=== PATIENT | male | born 1935 | race Caucasian/White ===

== ENCOUNTER 2017-11-23 19:37 | Inpatient (IN) | payer MEDICARE ==
[2017-11-23 20:19] LABS: #Eosinphils 0.1 thou/uL (0.0-0.7); #Lymphocytes 2.2 thou/uL (1.20-3.40); #Monocytes 0.5 thou/uL (0.11-0.59); #Neutrophils 3.6 thou/uL (1.40-6.50); %Basophils 0.8 % (0.0-1.0); %Eosinophils 1.6 % (0.0-10.0); %Monocytes 7.8 % (0.0-10.0); %Neutrophils 55.9 % (42.0-75.0); Hemoglobin 14.5 g/dL (14.0-18.0); Mean Corpuscular HGB CONC 34.7 g/dL (32.0-36.0); Mean Corpuscular Hemoglobin 32.8 pg (27.0-31.0); Mean Corpuscular Volume 94.4 fL (78.0-98.0); Mean Platelet Volume 6.6 fL (7.4-10.4); Platelet Count 125 thou/uL (130-400); RBC Distribution Width 12.6 % (11.5-14.5); Red Blood Cell (RBC) Count 4.41 mill/uL (4.70-6.10); White Blood Cell (WBC) Count 6.5 thou/uL (4.8-10.8)
[2017-11-23 20:24] LABS: PTT 24.6 SEC (22.9-36.1); Prothrombin Time 12.8 SEC (12.0-14.7)
[2017-11-23 20:40] LABS: ALT (SGPT) 44 U/L (8-55); AST (SGOT) 44 U/L (5-34); Albumin 4.2 g/dL (3.4-4.8); Alkaline Phosphatase 40 U/L (40-150); Anion Gap 11 mmol/L (10-20); BUN (Urea Nitrogen) 18 mg/dL (8.4-25.7); Bilirubin, Total 0.3 mg/dL (0.2-1.2); CK (CPK) 118 U/L (30-200); Calc. Creatinine Clearance 0 mL/min (70-130); Calcium 9.5 mg/dL (7.8-10.44); Carbon Dioxide 27 mmol/L (23-31); Chloride 101 mmol/L (98-107); Estimated GFR-MDRD 74; Globulin 2.6 g/dL (2.4-3.5); Glucose 148 mg/dL (83-110); Potassium 4.1 mmol/L (3.5-5.1); Protein, Total 6.8 g/dL (5.8-8.1); Sodium 135 mmol/L (136-145)
[2017-11-23 20:45] LABS: CKMB 3.9 ng/mL (0-6.6); Troponin I Less than 0.010 ng/mL (< 0.028)
--- NOTE | 2017-11-23 21:02 | RAD ---
RADIOGRAPH CHEST 1 VIEW: Date: 11/23/16 Time: 8:18 p.m. HISTORY: 82-year-old male with brachycardia and syncope. COMPARISON: None. FINDINGS: Ectasia and tortuosity of the thoracic aorta. Magnification of the cardiac shadow. Upper lobe pulmona ry vasculature is mildly engorged. No ian pulmonary alveolar edema. No consolidation. Lateral costo phrenic angles are sharp. No pneumothorax. IMPRESSION: 1. Mild pulmonary vascular congestion. 2. Ectasia and tortuosity of the thoracic aorta. JN [] POS: [facility]
[2017-11-23] MEDS ORDERED: Bisacodyl 5 MG TAB PO PRN ×2 (22:43)
[2017-11-23] MEDS ORDERED: Loratadine 10 MG TAB PO PRN (22:43)
[2017-11-23] MEDS ORDERED: Senokot 8.6 MG TAB PO PRN ×2 (22:43)
[2017-11-23] MEDS ORDERED: Calcium Carbonate 500 MG ChewTAB PO PRN (22:43)
[2017-11-23] MEDS ORDERED: hydrALAZINE 20 MG/ML VIAL SLOW IVP PRN (22:43)
[2017-11-23] MEDS ORDERED: Nitroglycerin 0.4 MG TAB (25 Tab Bottle) SL PRN (22:43)
[2017-11-23] MEDS ORDERED: Benzonatate 100 MG CAP PO PRN (22:43)
[2017-11-23] MEDS ORDERED: cloNIDine 0.1 MG TAB PO PRN (22:43)
[2017-11-23] MEDS ORDERED: Diabetic Tussin 200 MG/10 ML UDCUP PO PRN (22:43)
[2017-11-23] MEDS ORDERED: traMADol HCl 50 MG TAB PO PRN (22:43)
[2017-11-23] MEDS ORDERED: Mag-Al 1200 mg/1200 mg/30 ML UDCUP PO PRN (22:43)
[2017-11-23] MEDS ORDERED: Acetaminophen 325 MG TAB PO PRN (22:43)
[2017-11-24] MEDS ORDERED: Dextrose 50% Abboject 50 ML SYRINGE SLOW IVP PRN (00:23)
[2017-11-24] MEDS ORDERED: Nitroglycerin 0.4 MG TAB (25 Tab Bottle) SL PRN (00:23)
[2017-11-24] MEDS ORDERED: Calcium Carbonate 500 MG ChewTAB PO PRN (00:23)
[2017-11-24] MEDS ORDERED: Dextrose 5% in Water 1,000 ML IV PRN (00:23)
[2017-11-24] MEDS ORDERED: HumaLOG 300 UNITS/3 ML VIAL SC PRN ×2 (00:23)
[2017-11-24] MEDS ORDERED: hydrALAZINE 20 MG/ML VIAL SLOW IVP PRN (00:23)
[2017-11-24] MEDS ORDERED: Acetaminophen 325 MG TAB PO PRN (00:23)
[2017-11-24] MEDS ORDERED: Bisacodyl 5 MG TAB PO PRN ×2 (00:23)
[2017-11-24] MEDS ORDERED: traMADol HCl 50 MG TAB PO PRN (00:23)
[2017-11-24] MEDS ORDERED: Mag-Al 1200 mg/1200 mg/30 ML UDCUP PO PRN (00:23)
[2017-11-24] MEDS ORDERED: Senokot 8.6 MG TAB PO PRN ×2 (00:23)
[2017-11-24] MEDS ORDERED: Diabetic Tussin 200 MG/10 ML UDCUP PO PRN (00:23)
[2017-11-24] MEDS ORDERED: Loratadine 10 MG TAB PO PRN (00:23)
[2017-11-24] MEDS ORDERED: Benzonatate 100 MG CAP PO PRN (00:23)
[2017-11-24] MEDS ORDERED: Ondansetron HCl/PF 4 MG/2 ML Vial IVP PRN ×2 (00:23)
[2017-11-24 00:37] VITALS: BMI 40.3
--- NOTE | 2017-11-24 02:33 | HP ---
PRIMARY CARE PHYSICIAN: Cristobal Perez M.D. PRIMARY PROFILING MACHINE SET UP OPERATOR TOOL: Dr. Mccarthy. CHIEF COMPLAINT: Dizziness and syncope. HISTORY OF PRESENT ILLNESS: Mr. Reese is a very pleasant 82-year-old male with known history of hyp ertension, diabetes, who presented to the ER with above-mentioned complaint. History is mainly obtai arnaldo by the patient himself. Electronical medical records have been reviewed. Case has been discusse d with admitting ER physician. Mr. Reese reports that about 2 weeks ago while he was walking his dog, he noticed some dizziness. H e checked his blood pressure and heart rate and both were very low. His diastolic blood pressure was in the 30s and so was his heart rate. This has happened after repeat check as well. Also, this mor brianna, he was feeling dizzy again and checked his blood pressure and heart rate with similar readings. Later while, he was sitting in the chair with his son-in-law looking at some slides he passed out. This was witnessed by his son-in-law who reported to the ER physician that this episode was about 10 seconds or so. Mr. Reese himself has no recollection of that. He has been feeling dizzy all day l . He denies any palpitations or chest pain or any recent illnesses. He denies any shortness of b reath, orthopnea, or PND. He reports that after his first episode about 2 weeks ago, he sought attention with his primary cardi ologist, Dr. Mccarthy. He is supposed to undergo a 24-hour Holter monitor this coming Tuesday and a stress test this coming Tuesday. Upon presentation to the ER, he was hemodynamically stable with a blood pressure 141/79 with a pulse of 78, oxygen saturation 94% on room air. His bradycardia has not repeated here. His EKG showed fir st-degree AV block with incomplete right bundle branch block. His lab work is rather unremarkable. Cardiac enzymes normal. He is now being admitted for evaluation and monitoring of symptomatic bradyc ardia. PAST MEDICAL HISTORY: 1. Hypertension. 2. Diabetes mellitus. PAST SURGICAL HISTORY: 1. Bladder tumor removal. 2. Left knee replacement. PSYCHIATRIC HISTORY: No anxiety or depression. SOCIAL HISTORY: He lives with his family. No history of drug, tobacco, or alcohol abuse. FAMILY HISTORY: No significant family history of premature coronary artery disease or stroke. ALLERGIES: No known medication allergies. CURRENT MEDICATIONS: Aspirin 81 mg daily. Please note the medications listed are as per the ER val rd, Lasix 40 mg daily, glyburide 5 mg daily, hydrochlorothiazide 25 mg daily, metformin 500 mg p.o. b .i.d., tamsulosin 0.4 mg daily, vitamin D3 of 1000 units daily, Flexeril 10 mg t.i.d., Jardiance 10 m g daily, losartan 50 mg daily, and Crestor 10 mg daily. REVIEW OF SYSTEMS: The following complete review of systems was negative, except for those mentioned in the history and physical: Constitutional: Weight loss or gain, ability to conduct usual activit ies. Skin: Rash, itching. Eyes: Double vision, pain. ENT/Mouth: Nose bleeding, neck stiffness, pain, tenderness. Cardiovascular: Palpitations, dyspnea on exertion, orthopnea. Respiratory: Shor tness of breath, wheezing, cough, hemoptysis, fever, or night sweats. Gastrointestinal: Poor appeti te, abdominal pain, heartburn, nausea, vomiting, constipation, or diarrhea. Genitourinary: Urgency, frequency, dysuria, nocturia. Musculoskeletal: Pain, swelling. Neurologic/Psychiatric: Anxiety, depression. Allergy/Immunologic: Skin rash, bleeding tendency. LABORATORY DATA: His CBC is unremarkable. Hemoglobin 14.5. He has mild thrombocytopenia with a ileana telet count of 125. PT, PTT, and INR were unremarkable. Serum chemistry shows sodium of 135, blood sugar 148. AST 44. Cardiac enzymes normal. A 12-lead EKG by my review shows first-degree AV block. No acute ST or T-wave changes. Chest x-ray by my review showed mild pulmonary vascular congestion, otherwise unremarkable. PHYSICAL EXAMINATION: VITAL SIGNS: Most recent vital signs, temperature 97.9, pulse of 64, respirations 16, saturating 96% on room air, blood pressure 140/80. GENERAL: No acute distress, awake, alert, oriented x3. CHEST: Clear to auscultation without any wheezing, rales, or rhonchi. CARDIOVASCULAR: Rhythm is regular without any murmur, rubs, or gallops. ABDOMEN: Soft, nontender, nondistended with positive bowel sounds. EXTREMITIES: Free of any cyanosis, clubbing, or edema. NEUROLOGIC: Nonfocal. SKIN: Shows patchy papular erythematous rash on both lower extremities, for which he is under care o f a integrated logistics programs director, Dr. Agosto. NEUROLOGIC: Nonfocal. PSYCHIATRIC: Normal affect. IMPRESSION AND PLAN: 1. Syncope secondary to bradycardia. 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 We will admit him to telemetry unit and consult Cardiology in the morning for a possible pacemaker placement. An echocardiogram will be obtained. The patient also has an outpati ent stress test scheduled by his own primary rare/endangered species specialist, Dr. Mccarthy. At this time, he is confli cted whether he would like to get his whole workup and treatment done here versus being transferred [facility] for his own rare/endangered species specialist. This will be discussed further in the morning on ce his echocardiogram results are available and if he is not too unstable. Cardiology recommendation s are also requested. Currently, he is hemodynamically stable. He is not on any cady blocking agen ts. Continue aspirin for now. 2. Diabetes mellitus. We will start him on insulin sliding scale and hold the metformin for now. 3. History of hypertension. Resume home medications once confirmed. 4. Dyslipidemia. Resume his Crestor. 5. Code status: FULL CODE as discussed with the patient in detail. 6. Deep venous thrombosis and gastrointestinal prophylaxis and p.r.n. medication orders. DISPOSITION: Mr. Reese is currently being admitted to the hospital for symptomatic bradycardia lead ing to syncope. Estimated length of stay is at least 2-3 midnight. Further management will depend u emil his clinical course.
[2017-11-24 03:59] VITALS: BP 123/71; TEMP 97.6
[2017-11-24 05:55] LABS: Anion Gap 11 mmol/L (10-20); BUN (Urea Nitrogen) 15 mg/dL (8.4-25.7); Calc. Creatinine Clearance 137 mL/min (70-130); Calcium 9.1 mg/dL (7.8-10.44); Carbon Dioxide 26 mmol/L (23-31); Chloride 105 mmol/L (98-107); Estimated GFR-MDRD Greater than 90; Glucose 132 mg/dL (83-110); Potassium 3.9 mmol/L (3.5-5.1); Sodium 138 mmol/L (136-145)
[2017-11-24 08:13] LABS: Band 3 % (5-11); Eosinophils 2 % (0-10); Hemoglobin 13.6 g/dL (14.0-18.0); Lymphocytes 26 % (21-51); MDiff Complete? YES; Mean Corpuscular HGB CONC 33.9 g/dL (32.0-36.0); Mean Corpuscular Hemoglobin 32.7 pg (27.0-31.0); Mean Corpuscular Volume 96.6 fL (78.0-98.0); Mean Platelet Volume 7.2 fL (7.4-10.4); Monocytes 8 % (0-10); Neutrophil 52 % (42-75); PLT Morphology Comment Appears Decreased; Platelet Count 115 thou/uL (130-400); RBC Distribution Width 12.7 % (11.5-14.5); RBC Morphology Normal; Reactive Lymphocytes 9 % (0-10); Red Blood Cell (RBC) Count 4.16 mill/uL (4.70-6.10); White Blood Cell (WBC) Count 6.2 thou/uL (4.8-10.8)
[2017-11-24] MEDS ORDERED: Hydrochlorothiazide 25 MG TAB PO SCH (09:00)
[2017-11-24] MEDS ORDERED: Rosuvastatin 10 MG TAB PO SCH (09:00)
[2017-11-24] MEDS ORDERED: Famotidine 20 MG TAB PO SCH ×2 (09:00)
[2017-11-24] MEDS ORDERED: Enoxaparin Sodium 40 MG/0.4 ML SYRINGE SC SCH ×2 (09:00)
--- NOTE | 2017-11-24 15:26 | DIS ---
DATE OF ADMISSION: 11/23/2017 DATE OF DISCHARGE: 11/24/2017 PRIMARY CARE PHYSICIAN: Dr. Cristobal Perez. PRIMARY SENIOR PROGRAM MANAGER: Dr. Mccarthy. DISCHARGE DIAGNOSES: Dizziness and syncope. CONSULTATIONS: Cardiology, Dr. Benjamin Yi, 11/24/2017. PROCEDURES: None. HISTORY AND PHYSICAL: Mr. Reese is an 82-year-old male with known history of hypertension, diabetes , and coronary artery disease who presents to the emergency department here with complaints of dizzin ess and passing out. History will begin 2 weeks ago while walking his dog and got a little bit dizzy. Blood pressure and heart rate at that time was very low with a diastolic pressure somewhere in the 30s as his heart rate . He repeated and got the same results. Today, he felt the same feeling and rechecked his blood pre ssure and heart rate with similar readings. Later that morning while he was sitting in a chair, look ing at some slides, he said he passed out and this was witnessed by his son-in-law. There is no roney c-clonic activity and lasted about 10 seconds. The patient does not really recall. He has been othe rwise feeling dizzy, so came in to the emergency department for evaluation. Here, labs were normal, cardiac biomarkers were normal, heart rate been in the 60s. His exam was unr emarkable. We were subsequently called for admit. HOSPITAL COURSE: The patient was seen and examined by Dr. Ramirez on 11/23/2017, the patient was ileana nikkie in observation overnight and monitored on telemetry. Serial cardiac biomarkers were negative and the patient had no further symptoms. Telemetry was negative for any events. The patient was seen e rosmery afternoon by Dr. Yi and subsequently cleared for discharge with outpatient followup with Dr. Mccarthy. The patient was requesting to be transferred to the [facility] if he needs any procedure done a nyways. He was discharged home in stable condition with outpatient followup. DISCHARGE CONDITION: Stable. DISPOSITION: Discharged home via private vehicle. DISCHARGE ACTIVITY: Per cardiopulmonary limits. DISCHARGE DIET: Heart healthy diabetic diet recommended. DISCHARGE MEDICATIONS: 1. Crestor 10 mg p.o. at bedtime. 2. HCTZ 25 mg daily.
--- NOTE | 2017-11-24 17:15 | CON ---
DATE OF CONSULTATION: 11/24/2017 REASON FOR CONSULTATION: Syncope. PRIMARY VP DATA: Jacinto Mccarthy M.D. HISTORY OF PRESENT ILLNESS: Mr. Reese is a very pleasant 82-year-old white gentleman who comes to [facility] for a syncopal spell. He was at home with his son-in-law and sitting down and suddenly j ust passed out, episode lasted about 10 seconds. Just a few weeks before that he had been noticing f eeling just dizzy and tired. He checked his blood pressure and his blood pressure was about 160/30 a nd he states that his heart rate was in the low 40s. He decided just take it easy for the rest of and he states that he slowly felt better. He went to see his Wallpaper Cleaner, Dr. Mccarthy for [facility] just last week and he is scheduled to have a stress test a Holter monitor next week. He was admi tted as he had this episode of syncope. He has not had any more bradyarrhythmias. On his telemetry monitoring, his heart rate has remained in the 60s-70s. PAST MEDICAL HISTORY: 1. Hypertension. 2. Type 2 diabetes. PAST SURGICAL HISTORY: 1. Bladder tumor removal. 2. Left knee replacement. SOCIAL HISTORY: No alcohol, tobacco or drugs. FAMILY HISTORY: Noncontributory. OUTPATIENT MEDICATIONS: 1. Aspirin 81 a day. 2. Lasix 4 mg a day. 3. Glyburide 5 mg a day. 4. Hydrochlorothiazide 25 mg a day. 5. Metformin 500 mg b.i.d. 6. Tamsulosin. 7. Vitamin D3. 8. Flexeril. 9. Jardiance. 10. Losartan 50 mg a day. 11. Crestor 10 mg a day. ALLERGIES: No known drug allergies. REVIEW OF SYSTEMS: A 12-point review of systems was done and is all negative unless stated in the hi story of present illness. PHYSICAL EXAMINATION: VITAL SIGNS: Temperature 97.6, pulse 79, respiration rate 16, satting 95% on room air, blood pressur e 123/71. GENERAL: Awake, alert, oriented x3, in no distress. HEENT: Normocephalic, atraumatic. NECK: Supple. LUNGS: Clear. CARDIOVASCULAR: There is a grade 3/6 systolic murmur in the right upper sternal border. ABDOMEN: Soft, positive bowel sound. EXTREMITIES: 1+ edema. SKIN: Warm and dry. LABORATORY WORK: Reviewed. CBC, coags were reviewed. Chemistries were reviewed. Troponin was nega tive. BNP was 43. EKG was reviewed. Echocardiogram was reviewed. ASSESSMENT AND PLAN: Syncope: Could be related to bradycardia. He may need an event monitor for th is. He wants to have everything done with Dr. Mccarthy's primary steeple jack as he has been seeing him for many years now. I think this is very reasonable. It should be safe for him to be discharge d home. At this time, his echo does not show any life-threatening valvular abnormalities. He does h ave mild aortic valve stenosis on echo. Otherwise, he has followup studies already set up at Dr. Gavin michele's office next week. I would probably hold his hydrochlorothiazide until he sees Dr. Mccarthy again. Thank you for letting us participate in the care of your patient. We will sign off. Please call jewels lawrence any questions. DISPOSITION: 1. May discharged home any time. 2. Hold hydrochlorothiazide.
--- NOTE | 2017-11-26 12:38 | EKG ---
Test Reason : Blood Pressure : / mmHG Vent. Rate : 078 BPM Atrial Rate : 078 BPM P-R Int : 214 ms QRS Dur : 142 ms QT Int : 424 ms P-R-T Axes : 033 000 032 degrees QTc Int : 483 ms Sinus rhythm with 1st degree A-V block Right bundle branch block Inferior infarct , age undetermined Abnormal ECG Confirmed by CARLOS GONZALEZ M.D. ([id number]), editorial clerk LILIA FONTANEZ ([id number]) on 11/26/2017 12:38:38 PM Referred By: Confirmed By:CARLOS GONZALEZ M.D.
== END 2017-11-24 18:03 | disposition home or self-care (01) | DRG 310 ==
LOC: ERS 19:37 → 2NO 21:38 → ERS 23:43
PROVIDERS: ADMIT Internal Medicine; ATTEND Internal Medicine
DX: R00.1 Bradycardia, unspecified (principal); R55 Syncope and collapse; I10 Essential (primary) hypertension; E11.9 Type 2 diabetes mellitus without complications; E78.5 Hyperlipidemia, unspecified; I25.10 Atherosclerotic heart disease of native coronary artery without angina pectoris; Z87.891 Personal history of nicotine dependence
CPT/HCPCS: 36415; 36416; 71045; 80048; 80053; 82550; 82553; 83880; 84484; 85025; 85610; 85730; 93005; 93306; A4216; J1650

== ENCOUNTER 2019-08-14 09:32 | Outpatient (CLI) | payer MEDICARE ==
--- NOTE | 2019-08-14 10:07 | RAD ---
PA AND LATERAL CHEST: COMPARISON: 11/23/2017 study. HISTORY: Abnormal breath sounds. Cough. Shortness of breath. FINDINGS: Heart size is enlarged. A pacemaker is present. There are chronic-appearing lung changes seen. The y appear fairly similar to the prior examination. Interstitial changes may be subtly accentuated. T his is probably just technique related. IMPRESSION: Cardiomegaly with chronic-appearing lung changes. Some element of superimposed edema is difficult to totally exclude. POS: [facility]
== END 2019-08-14 09:33 | disposition home or self-care (01) ==
LOC: BICRAD 09:32
PROVIDERS: ATTEND Nurse Practitioner Family
DX: R06.89 Other abnormalities of breathing (principal); I51.7 Cardiomegaly
CPT/HCPCS: 71046

== ENCOUNTER 2019-08-14 12:08 | Emergency (ER) | payer MEDICARE ==
[2019-08-14 12:38] LABS: #Basophils 0.1 thou/uL (0.0-0.2); #Eosinphils 0.1 thou/uL (0.0-0.7); #Lymphocytes 2.9 thou/uL (1.20-3.40); #Monocytes 0.6 thou/uL (0.11-0.59); #Neutrophils 4.2 thou/uL (1.40-6.50); %Eosinophils 1.6 % (0.0-10.0); %Lymphocytes 36.5 % (21.0-51.0); %Monocytes 7.7 % (0.0-10.0); %Neutrophils 53.2 % (42.0-75.0); Hemoglobin 15.5 g/dL (14.0-18.0); Mean Corpuscular HGB CONC 33.8 g/dL (32.0-36.0); Mean Corpuscular Hemoglobin 32.5 pg (27.0-31.0); Mean Platelet Volume 7.2 fL (7.4-10.4); Platelet Count 209 thou/uL (130-400); RBC Distribution Width 11.7 % (11.5-14.5); Red Blood Cell (RBC) Count 4.76 mill/uL (4.70-6.10); White Blood Cell (WBC) Count 7.9 thou/uL (4.8-10.8)
[2019-08-14 13:15] LABS: ALT (SGPT) 14 U/L (8-55); AST (SGOT) 14 U/L (5-34); Albumin 4.3 g/dL (3.4-4.8); Alkaline Phosphatase 59 U/L (40-110); Anion Gap 16 mmol/L (10-20); BUN (Urea Nitrogen) 21 mg/dL (8.4-25.7); Bilirubin, Total 0.5 mg/dL (0.2-1.2); CK (CPK) 82 U/L (30-200); Calc. Creatinine Clearance 0 mL/min (70-130); Calcium 9.6 mg/dL (7.8-10.44); Carbon Dioxide 26 mmol/L (23-31); Chloride 96 mmol/L (98-107); Estimated GFR-MDRD 73; Globulin 2.5 g/dL (2.4-3.5); Glucose 235 mg/dL (83-110); Potassium 4.2 mmol/L (3.5-5.1); Protein, Total 6.8 g/dL (5.8-8.1); Sodium 134 mmol/L (136-145)
== END 2019-08-14 14:14 | disposition home or self-care (01) ==
LOC: ERS 12:08
DX: J18.9 Pneumonia, unspecified organism (principal); E11.9 Type 2 diabetes mellitus without complications; I10 Essential (primary) hypertension; Z87.891 Personal history of nicotine dependence; Z79.82 Long term (current) use of aspirin; Z79.84 Long term (current) use of oral hypoglycemic drugs; Z79.899 Other long term (current) drug therapy
CPT/HCPCS: 36415; 71046; 80053; 82550; 83880; 84484; 85025; 93005

== ENCOUNTER 2022-07-14 20:58 | Inpatient (IN) | payer MEDICARE ==
[2022-07-14 21:41] LABS: #Eosinphils 0.1 thou/uL (0.0-0.7); #Lymphocytes 1.2 thou/uL (1.20-3.40); #Monocytes 0.9 thou/uL (0.11-0.59); #Neutrophils 4.8 thou/uL (1.40-6.50); %Basophils 0.6 % (0.0-1.0); %Eosinophils 0.9 % (0.0-10.0); %Lymphocytes 17.5 % (21.0-51.0); %Monocytes 12.7 % (0.0-10.0); %Neutrophils 68.3 % (42.0-75.0); Mean Corpuscular HGB CONC 35.8 g/dL (32.0-36.0); Mean Corpuscular Hemoglobin 33.9 pg (27.0-31.0); Mean Corpuscular Volume 94.6 fl (78.0-98.0); Mean Platelet Volume 7.5 fL (7.4-10.4); Platelet Count 124 10x3/uL (130-400); RBC Distribution Width 12.7 % (11.5-14.5); Red Blood Cell (RBC) Count 4.41 mill/uL (4.70-6.10); White Blood Cell (WBC) Count 7.1 10x3/uL (4.8-10.8)
[2022-07-14 22:02] LABS: Acetaminophen Less than 10.0 mcg/mL (10.0-30.0); Alcohol Less than 10 mg/dL (Less than 10); Salicylate Less than 8.0 mg/dL (15.0-30.0)
[2022-07-14 22:03] LABS: ALT (SGPT) 9 U/L (8-55); AST (SGOT) 15 U/L (5-34); Albumin 3.5 g/dL (3.4-4.8); Alkaline Phosphatase 64 U/L (40-110); Anion Gap 20 mmol/L (10-20); BUN (Urea Nitrogen) 21 mg/dL (8.4-25.7); Bilirubin, Total 0.5 mg/dL (0.2-1.2); Calc. Creatinine Clearance 0 mL/min (70-130); Calcium 10.2 mg/dL (7.8-10.44); Carbon Dioxide 16 mmol/L (23-31); Chloride 97 mmol/L (98-107); Estimated GFR 43; Globulin 2.8 g/dL (2.4-3.5); Glucose 130 mg/dL (83-110); Magnesium 2.1 mg/dL (1.6-2.6); Protein, Total 6.3 g/dL (5.8-8.1); Sodium 130 mmol/L (136-145)
[2022-07-14 22:15] LABS: Potassium 2.5 mmol/L (3.5-5.1)
[2022-07-14 22:24] LABS: CKMB 5.8 ng/mL (0-6.6)
[2022-07-14] MEDS ORDERED: Potassium Chloride 40 MEQ in Dextrose 5% in Water 1,000 ML IV SCH (22:45)
[2022-07-15] MEDS ORDERED: Ondansetron PF 4 MG/2 ML Vial IVP PRN (02:01)
[2022-07-15] MEDS ORDERED: Ondansetron ODT 4 MG TAB PO PRN (02:01)
[2022-07-15] MEDS ORDERED: Acetaminophen 650 MG Suppository PR PRN (02:01)
[2022-07-15] MEDS ORDERED: Ipratropium/Albuterol 3 ML NEB NEB PRN (02:07)
[2022-07-15 03:21] LABS: #Basophils 0.1 thou/uL (0.0-0.2); #Lymphocytes 1.7 thou/uL (1.20-3.40); #Monocytes 1.2 thou/uL (0.11-0.59); #Neutrophils 5.4 thou/uL (1.40-6.50); %Basophils 0.9 % (0.0-1.0); %Eosinophils 0.3 % (0.0-10.0); %Lymphocytes 20.2 % (21.0-51.0); %Monocytes 13.8 % (0.0-10.0); %Neutrophils 64.8 % (42.0-75.0); Hemoglobin 13.8 g/dL (14.0-18.0); Mean Corpuscular HGB CONC 36.3 g/dL (32.0-36.0); Mean Corpuscular Hemoglobin 34.4 pg (27.0-31.0); Mean Corpuscular Volume 94.9 fl (78.0-98.0); Mean Platelet Volume 7.6 fL (7.4-10.4); Platelet Count 111 10x3/uL (130-400); RBC Distribution Width 12.6 % (11.5-14.5); Red Blood Cell (RBC) Count 4.02 mill/uL (4.70-6.10); White Blood Cell (WBC) Count 8.4 10x3/uL (4.8-10.8)
[2022-07-15 03:35] LABS: Anion Gap 20 mmol/L (10-20); BUN (Urea Nitrogen) 19 mg/dL (8.4-25.7); Calc. Creatinine Clearance 0 mL/min (70-130); Calcium 9.7 mg/dL (7.8-10.44); Carbon Dioxide 16 mmol/L (23-31); Chloride 96 mmol/L (98-107); Estimated GFR 44; Glucose 192 mg/dL (83-110); Potassium 2.8 mmol/L (3.5-5.1); Sodium 129 mmol/L (136-145)
[2022-07-15 03:36] LABS: Anion Gap 21 mmol/L (10-20); BUN (Urea Nitrogen) 21 mg/dL (8.4-25.7); Calc. Creatinine Clearance 0 mL/min (70-130); Calcium 9.9 mg/dL (7.8-10.44); Carbon Dioxide 15 mmol/L (23-31); Chloride 97 mmol/L (98-107); Estimated GFR 50; Glucose 197 mg/dL (83-110); Potassium 2.8 mmol/L (3.5-5.1); Sodium 130 mmol/L (136-145)
[2022-07-15 03:41] LABS: Troponin I 0.063 ng/mL (< 0.028)
[2022-07-15] MEDS ORDERED: HumaLOG 300 UNITS/3 ML VIAL SC PRN (04:13)
[2022-07-15] MEDS ORDERED: Dextrose 50% Abboject 50 ML SYRINGE SLOW IVP PRN (04:13)
[2022-07-15] MEDS ORDERED: Dextrose 5% in Water 1,000 ML IV PRN (04:13)
[2022-07-15] MEDS: Ipratropium/Albuterol 3 ML NEB NEB SCH ×4 (05:25→14:17)
[2022-07-15] MEDS ORDERED: Sodium Chloride 0.9% 1,000 ML IV SCH (06:00)
[2022-07-15] MEDS ORDERED: Sodium Bicarb 50 MEQ/50 ML VIAL IVP SCH (06:00)
[2022-07-15] MEDS: Potassium Chloride 20 MEQ TAB PO SCH ×6 (06:04→19:02)
[2022-07-15 07:03] LABS: Lactic Acid 0.7 mmol/L (0.5-2.2)
[2022-07-15 08:02] LABS: Bacteria/HPF None Seen HPF (None Seen); Bilirubin Negative (Negative); Blood, Urine 1+ (Negative); Clarity Clear (Clear); Glucose, Urine (Dipstick) Greater than 1000 mg/dL (Negative); Ketone, Urine 100 mg/dL (Negative); Leukocyte Negative Leu/uL (Negative); Nitrite Negative (Negative); Protein, Urine (Dipstick) 30 mg/dL (Neg-Trace); RBC/HPF 0-3 HPF (0-3); Specific Gravity, Urine 1.023 (1.002-1.036); Squamous Epithelial None Seen HPF (0-3); Urobilinogen Normal mg/dL (Less than 2); WBC/HPF 0-3 HPF (0-3)
[2022-07-15 09:10] LABS: Anion Gap 20 mmol/L (10-20); BUN (Urea Nitrogen) 17 mg/dL (8.4-25.7); Calc. Creatinine Clearance 70 mL/min (70-130); Calcium 9.5 mg/dL (7.8-10.44); Carbon Dioxide 18 mmol/L (23-31); Chloride 96 mmol/L (98-107); Estimated GFR 61; Glucose 118 mg/dL (83-110); Sodium 132 mmol/L (136-145)
[2022-07-15 09:22] LABS: Potassium 2.3 mmol/L (3.5-5.1)
[2022-07-15] MEDS: Aspirin 81 mg Enteric Coated Tablet PO SCH (09:31)
[2022-07-15] MEDS: Sodium Bicarbonate Tab 325 MG TAB PO SCH ×3 (09:31→20:27)
[2022-07-15] MEDS: Acetaminophen 325 MG TAB PO PRN (09:46)
[2022-07-15] MEDS: NS 0.9% w/ 40 MEQ KCL 1,000 ML IV SCH ×2 (09:48→20:28)
[2022-07-15 10:15] LABS: Creatinine, Urine 44.95 mg/dL (63-166)
[2022-07-15] MEDS ORDERED: Albuterol 200 PUFF (6.7GM INHALER) INH PRN (14:29)
[2022-07-15] MEDS: Albuterol 200 PUFF (6.7GM INHALER) INH SCH (14:54)
[2022-07-15 17:03] LABS: Phosphorus 1.8 mg/dL (2.3-4.7)
[2022-07-15 18:45] LABS: Anion Gap 19 mmol/L (10-20); BUN (Urea Nitrogen) 16 mg/dL (8.4-25.7); Calc. Creatinine Clearance 64 mL/min (70-130); Calcium 9.3 mg/dL (7.8-10.44); Carbon Dioxide 17 mmol/L (23-31); Chloride 98 mmol/L (98-107); Estimated GFR 56; Glucose 206 mg/dL (83-110); Sodium 131 mmol/L (136-145)
[2022-07-15] MEDS ORDERED: Potassium Phosphate 30 MMOL in Sodium Chloride 0.9% 250 ML 250 ML IVPB SCH (19:00)
[2022-07-15] MEDS: Rosuvastatin 10 MG TAB PO SCH (20:28)
[2022-07-15] MEDS ORDERED: Potassium Chloride 20 MEQ TAB PO SCH (21:00)
[2022-07-16 05:48] LABS: Anion Gap 16 mmol/L (10-20); BUN (Urea Nitrogen) 13 mg/dL (8.4-25.7); Calc. Creatinine Clearance 68 mL/min (70-130); Calcium 9.2 mg/dL (7.8-10.44); Carbon Dioxide 23 mmol/L (23-31); Chloride 100 mmol/L (98-107); Estimated GFR 59; Glucose 165 mg/dL (83-110); Magnesium 1.9 mg/dL (1.6-2.6); Potassium 3.5 mmol/L (3.5-5.1); Sodium 135 mmol/L (136-145)
[2022-07-16 05:53] LABS: Band 2 % (5-11); Hemoglobin 12.8 g/dL (14.0-18.0); Lymphocytes 27 % (21-51); MDiff Complete? YES; Mean Corpuscular HGB CONC 35.5 g/dL (32.0-36.0); Mean Corpuscular Hemoglobin 34.2 pg (27.0-31.0); Mean Corpuscular Volume 96.3 fl (78.0-98.0); Monocytes 18 % (0-10); Neutrophil 52 % (42-75); Platelet Count 89 10x3/uL (130-400); Platelet Morphology Comment Appears Adequate; RBC Distribution Width 12.8 % (11.5-14.5); RBC Morphology Normal; Red Blood Cell (RBC) Count 3.73 mill/uL (4.70-6.10); White Blood Cell (WBC) Count 5.2 10x3/uL (4.8-10.8)
[2022-07-16 05:59] LABS: CK (CPK) 163 U/L (30-200); Phosphorus 2.8 mg/dL (2.3-4.7)
[2022-07-16 07:17] VITALS: BMI 35.1
[2022-07-16] MEDS: Albuterol 200 PUFF (6.7GM INHALER) INH SCH ×6 (07:30→21:31)
[2022-07-16] MEDS: Lactated Ringer's 1,000 ML IV SCH ×3 (08:13→20:56)
[2022-07-16] MEDS: Aspirin 81 mg Enteric Coated Tablet PO SCH (09:19)
[2022-07-16] MEDS: Sodium Bicarbonate Tab 325 MG TAB PO SCH ×3 (09:19→20:56)
[2022-07-16] MEDS ORDERED: Potassium Chloride 20 MEQ TAB PO SCH (10:45)
[2022-07-16] MEDS: HumaLOG 300 UNITS/3 ML VIAL SC PRN ×2 (12:43→17:10)
[2022-07-16] MEDS: Rosuvastatin 10 MG TAB PO SCH (20:56)
[2022-07-16] MEDS ORDERED: Rosuvastatin 5 MG TAB PO SCH (21:00)
[2022-07-17] MEDS: Albuterol 200 PUFF (6.7GM INHALER) INH SCH ×6 (02:20→21:30)
[2022-07-17] MEDS: Acetaminophen 325 MG TAB PO PRN ×2 (05:00→21:29)
[2022-07-17 05:31] LABS: Anion Gap 14 mmol/L (10-20); BUN (Urea Nitrogen) 9 mg/dL (8.4-25.7); Calc. Creatinine Clearance 94 mL/min (70-130); Calcium 8.8 mg/dL (7.8-10.44); Carbon Dioxide 26 mmol/L (23-31); Chloride 96 mmol/L (98-107); Estimated GFR 84; Glucose 189 mg/dL (83-110); Magnesium 1.7 mg/dL (1.6-2.6); Potassium 3.2 mmol/L (3.5-5.1); Sodium 133 mmol/L (136-145)
[2022-07-17] MEDS: Lactated Ringer's 1,000 ML IV SCH (06:31)
[2022-07-17] MEDS: HumaLOG 300 UNITS/3 ML VIAL SC PRN ×3 (06:32→17:08)
[2022-07-17] MEDS ORDERED: Magnesium Sulfate In Water 4 GM in Premix Bag 1 BAG IVPB SCH (07:00)
[2022-07-17] MEDS: Aspirin 81 mg Enteric Coated Tablet PO SCH (07:35)
[2022-07-17] MEDS: Potassium Chloride 20 MEQ TAB PO SCH ×2 (07:35→11:04)
[2022-07-17] MEDS: Sodium Bicarbonate Tab 325 MG TAB PO SCH ×3 (07:35→21:14)
[2022-07-17] MEDS ORDERED: Aspirin 81 mg Enteric Coated Tablet PO SCH (09:00)
[2022-07-17 09:04] LABS: Phosphorus 2.9 mg/dL (2.3-4.7)
[2022-07-17] MEDS ORDERED: Glimepiride 4 MG TAB PO SCH (11:00)
[2022-07-17] MEDS: NS 0.9% w/ 40 MEQ KCL 1,000 ML IV SCH ×2 (11:05→21:17)
[2022-07-17 18:30] LABS: Anion Gap 15 mmol/L (10-20); BUN (Urea Nitrogen) 11 mg/dL (8.4-25.7); Calc. Creatinine Clearance 97 mL/min (70-130); Calcium 8.8 mg/dL (7.8-10.44); Carbon Dioxide 27 mmol/L (23-31); Chloride 97 mmol/L (98-107); Estimated GFR 85; Glucose 235 mg/dL (83-110); Magnesium 2.1 mg/dL (1.6-2.6); Potassium 3.8 mmol/L (3.5-5.1); Sodium 135 mmol/L (136-145)
[2022-07-17] MEDS: Insulin Glargine 30 UNITS/0.3 ML VIAL SC SCH (21:14)
[2022-07-17] MEDS: Rosuvastatin 10 MG TAB PO SCH (21:14)
[2022-07-18] MEDS: Albuterol 200 PUFF (6.7GM INHALER) INH SCH ×6 (03:34→23:01)
[2022-07-18] MEDS: Acetaminophen 325 MG TAB PO PRN (05:35)
[2022-07-18 05:59] LABS: Anion Gap 12 mmol/L (10-20); BUN (Urea Nitrogen) 8 mg/dL (8.4-25.7); Calc. Creatinine Clearance 107 mL/min (70-130); Calcium 8.5 mg/dL (7.8-10.44); Carbon Dioxide 29 mmol/L (23-31); Chloride 97 mmol/L (98-107); Estimated GFR 88; Glucose 161 mg/dL (83-110); Magnesium 3.4 mg/dL (1.6-2.6); Potassium 3.9 mmol/L (3.5-5.1); Sodium 134 mmol/L (136-145)
[2022-07-18] MEDS: NS 0.9% w/ 40 MEQ KCL 1,000 ML IV SCH (07:47)
[2022-07-18] MEDS: Glimepiride 4 MG TAB PO SCH (07:48)
[2022-07-18] MEDS: Aspirin 81 mg Enteric Coated Tablet PO SCH (07:48)
[2022-07-18] MEDS: Sodium Bicarbonate Tab 325 MG TAB PO SCH (07:48)
[2022-07-18] MEDS ORDERED: oxyCODONE 5 MG TAB PO PRN (07:59)
[2022-07-18] MEDS ORDERED: Potassium Chloride 20 MEQ TAB PO SCH (08:00)
[2022-07-18] MEDS: HumaLOG 300 UNITS/3 ML VIAL SC PRN ×2 (12:34→19:02)
[2022-07-18] MEDS: Rosuvastatin 10 MG TAB PO SCH (21:07)
[2022-07-18] MEDS: Insulin Glargine 30 UNITS/0.3 ML VIAL SC SCH (21:08)
[2022-07-19] MEDS: Albuterol 200 PUFF (6.7GM INHALER) INH SCH ×2 (02:35→06:18)
[2022-07-19 05:16] LABS: Anion Gap 8 mmol/L (10-20); BUN (Urea Nitrogen) 8 mg/dL (8.4-25.7); Calc. Creatinine Clearance 123 mL/min (70-130); Calcium 8.9 mg/dL (7.8-10.44); Carbon Dioxide 29 mmol/L (23-31); Chloride 101 mmol/L (98-107); Estimated GFR 91; Glucose 150 mg/dL (83-110); Magnesium 1.9 mg/dL (1.6-2.6); Potassium 4.1 mmol/L (3.5-5.1); Sodium 134 mmol/L (136-145)
[2022-07-19 05:44] LABS: Band 1 % (5-11); Hemoglobin 12.4 g/dL (14.0-18.0); Hypochromia SLIGHT = 6-15 cells (100X) (0-5/hpf); Lymphocytes 29 % (21-51); MDiff Complete? YES; Mean Corpuscular HGB CONC 34.6 g/dL (32.0-36.0); Mean Corpuscular Hemoglobin 34.2 pg (27.0-31.0); Mean Corpuscular Volume 98.8 fl (78.0-98.0); Mean Platelet Volume 7.5 fL (7.4-10.4); Monocytes 8 % (0-10); Neutrophil 59 % (42-75); Platelet Count 88 10x3/uL (130-400); Platelet Morphology Comment Appears Decreased; RBC Distribution Width 12.4 % (11.5-14.5); Reactive Lymphocytes 3 % (0-10); Red Blood Cell (RBC) Count 3.64 mill/uL (4.70-6.10); White Blood Cell (WBC) Count 5.5 10x3/uL (4.8-10.8)
[2022-07-19] MEDS ORDERED: Magnesium 2 GM/50 ML(in water) 2 GM in Premix Bag 1 BAG IVPB SCH (08:30)
[2022-07-19] MEDS: Glimepiride 4 MG TAB PO SCH (09:05)
[2022-07-19] MEDS: Aspirin 81 mg Enteric Coated Tablet PO SCH (09:06)
[2022-07-19] MEDS: HumaLOG 300 UNITS/3 ML VIAL SC PRN (13:44)
[2022-07-19 16:57] VITALS: BP 140/67; TEMP 96.7
== END 2022-07-19 16:30 | disposition home health service (06) | DRG 682 ==
LOC: ERS 20:58 → 2NO 23:17 → OBSVTOIN 07-15 15:57
PROVIDERS: ADMIT Internal Medicine; ATTEND Internal Medicine
PROC: 8E0ZXY6 Isolation (ICD-10-PCS; principal; 2022-07-15)
DX: N17.9 Acute kidney failure, unspecified (principal); U07.1 COVID-19; E87.20 Acidosis, unspecified; I50.32 Chronic diastolic (congestive) heart failure; I11.0 Hypertensive heart disease with heart failure; I25.10 Atherosclerotic heart disease of native coronary artery without angina pectoris; E87.6 Hypokalemia; E86.9 Volume depletion, unspecified; E86.0 Dehydration; T50.2X5A Adverse effect of carbonic-anhydrase inhibitors, benzothiadiazides and other diuretics, initial encounter; E11.9 Type 2 diabetes mellitus without complications; D69.6 Thrombocytopenia, unspecified; E83.39 Other disorders of phosphorus metabolism; Z95.0 Presence of cardiac pacemaker; Z95.5 Presence of coronary angioplasty implant and graft; Z79.899 Other long term (current) drug therapy; Z98.42 Cataract extraction status, left eye; Z98.41 Cataract extraction status, right eye
CPT/HCPCS: 36415; 36416; 71045; 80048; 80053; 80307; 81001; 82010; 82140; 82550; 82553; 82570; 83605; 83735; 83880; 84100; 84156; 84300; 84443; 84484; 84540; 85025; 93005; 93306; 96365; 96366; 96372; 96374; 96375; G0378; J1650; J1815; J3475; J3480; J7050; J7070; J7120; J7620; U0003; U0005

== ENCOUNTER 2025-01-30 08:40 | Outpatient (CLI) | payer MEDICARE | END 2025-01-30 08:41 | disposition home or self-care (01) | LOC: RAD 08:40 | PROVIDERS: ATTEND Internal Medicine Critical Care Medicine | DX: R06.00 Dyspnea, unspecified (principal); I51.7 Cardiomegaly; R91.8 Other nonspecific abnormal finding of lung field | CPT/HCPCS: 71046 ==

== ENCOUNTER 2025-03-04 12:22 | Outpatient (CLI) | payer MEDICARE | END 2025-03-04 12:23 | disposition home or self-care (01) | LOC: BICCT 12:22 | PROVIDERS: ATTEND Internal Medicine | DX: J84.10 Pulmonary fibrosis, unspecified (principal) | CPT/HCPCS: 71250 ==